=== PATIENT | female | born 1995 | race Hispanic/Latino ===

== ENCOUNTER 2021-06-28 20:29 | Emergency (ER) | payer BC, OTHER ==
[2021-06-28] MEDS ORDERED: NA CHLORIDE 0.9% 500 ML ONE (21:17)
[2021-06-28 21:34] LABS: Absolute Lymphocytes (CBC) 2.8 K/uL (0.7-4.9); Lymphocytes % 25.3 % (15.3-44.8); MPV 10.1 fL (7.6-11.3); RBC Red Blood Cell Count 4.56 M/uL (3.86-4.86)
[2021-06-28] MEDS ORDERED: FAMOTIDINE 20 MG/2 ML VIAL IV ONE (21:36)
[2021-06-28] MEDS ORDERED: DIPHENHYDRAMINE 50 MG/ML VIAL ONE (21:36)
[2021-06-28 21:46] LABS: Albumin 3.9 g/dL (3.4-5.0); Bilirubin Total 0.2 mg/dL (0.2-1.0); Potassium 3.7 mmol/L (3.5-5.1); Protein, Total 7.4 g/dL (6.4-8.2)
--- NOTE | 2021-06-28 21:56 | ER ---
Nurse's Notes [facility] Name: Fiona Sheffield Age: 25 yrs Sex: Female : 1995 Arrival Date: 06/28/2021 Time: 20:32 Bed 10 Private MD: Diagnosis: Dermatitis, unspecified;Abnormal results of liver function studies Presentation: 06/28 20:51 Chief complaint: Patient states: itching for 3 days from head to toe. concerned that it lg3 may be an issue with her liver. during had similar issue and had to deliver a month early. Coronavirus screen: Client denies travel out of the [place] in the last 14 days. At this time, the client does not indicate any symptoms associated with coronavirus-19. Ebola Screen: No symptoms or risks identified at this time. Onset: The symptoms/episode began/occurred 3 day(s) ago. Anaphylaxis evaluation, no signs or symptoms of anaphylaxis were noted. Initial Sepsis Screen: Does the patient meet any 2 criteria? No. Patient's initial sepsis screen is negative. Does the patient have a suspected source of infection? No. Patient's initial sepsis screen is negative. Risk Assessment: Do you want to hurt yourself or someone else? Patient reports no desire to harm self or others. Onset of symptoms was June 25, 2021. 20:51 Method Of Arrival: Ambulatory lg3 20:51 Acuity: EARLINE 4 lg3 Triage Assessment: 20:55 General: Appears in no apparent distress. comfortable, Behavior is calm, cooperative. lg3 Pain: Denies pain. EENT: No deficits noted. No signs and/or symptoms were reported regarding the EENT system. Neuro: No deficits noted. Level of Consciousness is awake, alert, obeys commands, Oriented to person, place, time, situation. Cardiovascular: No deficits noted. Denies chest pain, shortness of breath, Capillary refill < 3 seconds Clubbing of nail beds is absent JVD is absent Patient's skin is warm and dry. Respiratory: No deficits noted. Airway is patent Trachea midline Respiratory effort is even, unlabored, Respiratory pattern is regular, symmetrical. GI: No deficits noted. No signs and/or symptoms were reported involving the gastrointestinal system. Abdomen is round non-distended. : No deficits noted. No signs and/or symptoms were reported regarding the genitourinary system. Derm: Reports excema. Musculoskeletal: No deficits noted. No signs and/or symptoms reported regarding the musculoskeletal system. Circulation, motion, and sensation intact. Range of motion: intact in all extremities. 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 - Social history:: Smoking status: Patient denies any tobacco usage or history of. Patient/guardian denies using alcohol. Screenin:56 Abuse screen: Denies threats or abuse. Denies injuries from another. Nutritional lg3 screening: No deficits noted. Tuberculosis screening: No symptoms or risk factors identified. Fall Risk None identified. Assessment: 21:17 General: Appears in no apparent distress. comfortable, Behavior is calm, cooperative, ab2 appropriate for age. Pain: Denies pain. 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 Gait is steady. Cardiovascular: No deficits noted. Denies chest pain, shortness of breath. Respiratory: No deficits noted. Airway is patent Respiratory effort is even, unlabored, Respiratory pattern is regular, symmetrical, Breath sounds are clear bilaterally. GI: No deficits noted. No signs and/or symptoms were reported involving the gastrointestinal system. : No deficits noted. No signs and/or symptoms were reported regarding the genitourinary system. EENT: No deficits noted. No signs and/or symptoms were reported regarding the EENT system. Derm: Skin is intact, is healthy with good turgor, Skin is pink, warm \T\ dry. Rash noted that is itchy, red, Reports itching. Vital Signs: 20:51 BP 109 / 81; Pulse 95; Resp 17 S; Temp 98.5(O); Pulse Ox 99% on R/A; Weight 63.96 kg lg3 (R); Height 5 ft. 5 in. (165.10 cm) (R); Pain 0/10; 21:16 BP 119 / 83; Pulse 79; Resp 17; Pulse Ox 98% on R/A; ab2 20:51 Body Mass Index 23.46 (63.96 kg, 165.10 cm) lg3 ED Course: 20:32 Patient arrived in ED. kc5 20:54 Triage completed. lg3 20:55 Arm band placed on left wrist. lg3 20:59 Marv Bacon MD is Attending Physician. rusty 21:06 Rahul Santiago is Primary Nurse. ab2 21:10 Inserted saline lock: 20 gauge in right antecubital area, using aseptic technique. ab2 Blood collected. 21:15 Comprehensive Metabolic Panel Sent. ab2 21:15 CBC with Diff Sent. ab2 21:19 Patient has correct armband on for positive identification. Bed in low position. Call ab2 light in reach. 21:19 No provider procedures requiring assistance completed. ab2 21:54 Peter Easton MD is Referral Physician. rusty 22:03 IV discontinued, intact, bleeding controlled, No redness/swelling at site. Pressure vc1 dressing applied. Administered Medications: 21:16 Drug: NS 0.9% 500 ml Route: IV; Rate: bolus; Site: right antecubital; ab2 21:39 Drug: Benadryl (diphenhydrAMINE) 25 mg Route: IVP; Site: right antecubital; ab2 21:39 Drug: Pepcid (famotidine) 20 mg Route: IVP; Site: right antecubital; ab2 Outcome: 21:55 Discharge ordered by . rusty 22:03 Discharged to home ambulatory. vc1 22:03 Condition: good 22:03 Discharge instructions given to patient, Instructed on discharge instructions, follow up and referral plans. medication usage, Demonstrated understanding of instructions, follow-up care, medications, Prescriptions given X 2. 22:03 Patient left the ED. vc1 Signatures: Marv Bacon MD MD cha Gibson, Lacie RN RN lg3 Shelley Bliss kc5 Rahul Santiago ab2 Tiffany Mcfadden RN RN vc1
--- NOTE | 2021-06-28 21:56 | EDPHYS ---
Physician Documentation [facility] Name: Fiona Sheffield Age: 25 yrs Sex: Female : 1995 Arrival Date: 06/28/2021 Time: 20:32 Bed 10 Private MD: ED Physician Marv Bacon HPI: 06/28 21:25 This 25 yrs old Female presents to ER via Ambulatory with complaints of LIVER rusty ISSUES, Itching. 21:25 The patient presents with itching. 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 - Social history:: Smoking status: Patient denies any tobacco usage or history of. Patient/guardian denies using alcohol. ROS: 21:25 Constitutional: Negative for fever, chills, and weight loss, Eyes: Negative for injury, rusty pain, redness, and discharge, ENT: Negative for injury, pain, and discharge, Neck: Negative for injury, pain, and swelling, Cardiovascular: Negative for chest pain, palpitations, and edema, Respiratory: Negative for shortness of breath, cough, wheezing, and pleuritic chest pain, Abdomen/GI: Negative for abdominal pain, nausea, vomiting, diarrhea, and constipation, Back: Negative for injury and pain, : Negative for injury, bleeding, discharge, and swelling, MS/Extremity: Negative for injury and deformity, Neuro: Negative for headache, weakness, numbness, tingling, and seizure, Psych: Negative for depression, anxiety, suicide ideation, homicidal ideation, and hallucinations, Allergy/Immunology: Negative for hives, rash, and allergies, Endocrine: Negative for neck swelling, polydipsia, polyuria, polyphagia, and marked weight changes, Hematologic/Lymphatic: Negative for swollen nodes, abnormal bleeding, and unusual bruising. 21:25 Skin: Positive for rash. Exam: 21:25 Constitutional: This is a well developed, well nourished patient who is awake, alert, rusty and in no acute distress. Head/Face: Normocephalic, atraumatic. Eyes: Pupils equal round and reactive to light, extra-ocular motions intact. Lids and lashes normal. Conjunctiva and sclera are non-icteric and not injected. Cornea within normal limits. Periorbital areas with no swelling, redness, or edema. ENT: Nares patent. No nasal discharge, no septal abnormalities noted. Tympanic membranes are normal and external auditory canals are clear. Oropharynx with no redness, swelling, or masses, exudates, or evidence of obstruction, uvula midline. Mucous membranes moist. Neck: Trachea midline, no thyromegaly or masses palpated, and no cervical lymphadenopathy. Supple, full range of motion without nuchal rigidity, or vertebral point tenderness. No Meningismus. Chest/axilla: Normal chest wall appearance and motion. Nontender with no deformity. No lesions are appreciated. Cardiovascular: Regular rate and rhythm with a normal S1 and S2. No gallops, murmurs, or rubs. Normal PMI, no JVD. No pulse deficits. Respiratory: Lungs have equal breath sounds bilaterally, clear to auscultation and percussion. No rales, rhonchi or wheezes noted. No increased work of breathing, no retractions or nasal flaring. Abdomen/GI: Soft, non-tender, with normal bowel sounds. No distension or tympany. No guarding or rebound. No evidence of tenderness throughout. Back: No spinal tenderness. No costovertebral tenderness. Full range of motion. Skin: Warm, dry with normal turgor. Normal color with no rashes, no lesions, and no evidence of cellulitis. MS/ Extremity: Pulses equal, no cyanosis. Neurovascular intact. Full, normal range of motion. Neuro: Awake and alert, GCS 15, oriented to person, place, time, and situation. Cranial nerves II-XII grossly intact. Motor strength 5/5 in all extremities. Sensory grossly intact. Cerebellar exam normal. Normal gait. Psych: Awake, alert, with orientation to person, place and time. Behavior, mood, and affect are within normal limits. 21:25 Skin: Exam negative for 21:25 Skin: Exam negative for abrasion, cyanosis, ecchymosis, erythema lesions, pallor, rusty petechiae. Vital Signs: 20:51 BP 109 / 81; Pulse 95; Resp 17 S; Temp 98.5(O); Pulse Ox 99% on R/A; Weight 63.96 kg lg3 (R); Height 5 ft. 5 in. (165.10 cm) (R); Pain 0/10; 21:16 BP 119 / 83; Pulse 79; Resp 17; Pulse Ox 98% on R/A; ab2 20:51 Body Mass Index 23.46 (63.96 kg, 165.10 cm) lg3 MDM: 20:59 Patient medically screened. [facility] 21:27 Data reviewed: vital signs, nurses notes, lab test result(s), CBC, electrolytes, rusty hepatic panel, urinalysis. 21:28 Data interpreted: panel monitor: rate is 79 beats/min, rhythm is regular. Counseling: rusty I had a detailed discussion with the patient and/or guardian regarding: the historical points, exam findings, and any diagnostic results supporting the discharge/admit diagnosis, lab results, radiology results. 06/28 20:59 Order name: CBC with Diff; Complete Time: 21:54 [facility] 06/28 20:59 Order name: Comprehensive Metabolic Panel; Complete Time: 21:54 rusty Administered Medications: 21:16 Drug: NS 0.9% 500 ml Route: IV; Rate: bolus; Site: right antecubital; ab2 21:39 Drug: Benadryl (diphenhydrAMINE) 25 mg Route: IVP; Site: right antecubital; ab2 21:39 Drug: Pepcid (famotidine) 20 mg Route: IVP; Site: right antecubital; ab2 Disposition Summary: 06/28/21 21:55 Discharge Ordered Location: Home rusty Problem: new rusty Symptoms: have improved rusty Condition: Stable rusty Diagnosis - Dermatitis, unspecified rusty - Abnormal results of liver function studies rusty Followup: rusty - With: Private Physician - When: 2 - 3 days - Reason: Recheck today's complaints, Continuance of care, Re-evaluation by your physician Followup: rusty - With: Peter Easton MD - When: 2 - 3 days - Reason: Recheck today's complaints, Re-evaluation by your physician Discharge Instructions: - Discharge Summary Sheet rusty - Eczema rusty - Rash, Adult rusty - Rash, Adult, [id number] rusty Forms: - Medication Reconciliation Form rusty - Thank You Letter rusty - Antibiotic Education rusty - Prescription Opioid Use rusty Prescriptions: - Benadryl 25 mg Oral Capsule - take 1 capsule by ORAL route every 6 hours As needed; 30 tablet; Refills: 0, [facility] Product Selection Permitted - Pepcid 20 mg Oral Tablet - take 1 tablet by ORAL route every 12 hours for 10 days; 20 tablet; Refills: 0, [facility] Product Selection Permitted Signatures: Dispatcher [employer] Marv Starr MD MD cha Gibson, Lacie, RN RN lg3 Rahul Santiago
[2021-06-28 23:30] VITALS: TEMP 98.5
[2021-06-28 23:32] VITALS: BP 119/83; O2SAT 98
== END 2021-06-28 22:03 | disposition home or self-care (01) ==
LOC: ER 20:29
DX: L30.9 Dermatitis, unspecified (principal); R94.5 Abnormal results of liver function studies
CPT/HCPCS: 85025; 36415; 80053; 96375; 96374; 99284; J1200; J7040